=== PATIENT | male | born 1980 | race Caucasian/White ===

== ENCOUNTER 2025-03-16 09:53 | Emergency (ER) | payer BC, OTHER ==
[~2025-03-16] VITALS: Ht 180.3 cm; Wt 104.3 kg
[2025-03-16] MEDS ORDERED: KETOROLAC TROMETHAMINE 15 MG/ML VIAL ONE (10:11)
[2025-03-16] MEDS: KETOROLAC TROMETHAMINE 15 MG/ML VIAL IM ONE (10:23)
[2025-03-16] MEDS: KETOROLAC TROMETHAMINE 15 MG/ML VIAL IV ONE (10:25)
[2025-03-16] MEDS ORDERED: NAPR-1164 PO (10:32)
[2025-03-16 11:40] VITALS: BP 125/84; TEMP 98.3; O2SAT 94
== END 2025-03-16 11:41 | disposition home or self-care (01) ==
LOC: ER 10:02
DX: S39.012A Strain of muscle, fascia and tendon of lower back, initial encounter (principal); S40.011A Contusion of right shoulder, initial encounter; I10 Essential (primary) hypertension; Z88.8 Allergy status to other drugs, medicaments and biological substances; W01.0XXA Fall on same level from slipping, tripping and stumbling without subsequent striking against object, initial encounter; Y93.89 Activity, other specified; Y92.89 Other specified places as the place of occurrence of the external cause; Y99.8 Other external cause status
CPT/HCPCS: 99284; 96372; 73000; 73030; J1885